=== PATIENT | male | born 2000 | race Hispanic/Latino ===

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

== ENCOUNTER 2021-01-23 17:32 | Emergency (ER) | payer MEDICAID, OTHER ==
[~2021-01-23] VITALS: Ht 147.3 cm; Wt 40.8 kg
[2021-01-23 20:24] VITALS: BP 124/56
== END 2021-01-23 20:12 | disposition home or self-care (01) ==
LOC: EDH 17:32
DX: K94.09 Other complications of colostomy (principal)
CPT/HCPCS: 99281